=== PATIENT | male | born 1950 | race Caucasian/White ===

== ENCOUNTER 2019-07-19 15:30 | Inpatient (IN) ==
[2019-07-19] MEDS ORDERED: ACETAMINOPHEN 500 MG TABLET PO STA (15:57)
[2019-07-19] MEDS ORDERED: ONDANSETRON 4 MG/2 ML VIAL IV STA (16:36)
[2019-07-19] MEDS ORDERED: AZITHROMYCIN INJ 500 MG in SODIUM CHLORIDE 0.9% 250 ML IV STA (16:36)
[2019-07-19] MEDS ORDERED: cefTRIAXone 1,000 MG in SODIUM CHLORIDE 0.9% 100 ML IV STA (16:36)
[2019-07-19] MEDS ORDERED: methylPREDNISolone SOD SUC 125 MG/2 ML VIAL IV STA (16:36)
[2019-07-19 16:38] LABS: Basophils % 0.1 % (0.0-0.8); Immature Granulocytes % 1.4 %; Immature Granulocytes Absolute 0.12 #; Lymphocytes % 11.4 % (21.2-54.2); Mean Corpuscular HGB Conc 32.3 GM/DL (32-36); Mean Corpuscular Volume 94.4 FL (87-102); Mean Platelet Volume 9.7 FL (9.6-12.0); Monocytes % 5.1 % (1.7-12.7); Platelet Count 221 T/CUMM (130-400); Red Blood Count 1.77 MC/CUMM (3.8-5.5); Red Cell Distribution Width 13.9 % (9.3-17.3); White Blood Count 8.7 T/CUMM (4-12)
[2019-07-19 16:41] LABS: Hematocrit 16.7 VOL% (42.0-52.0); Hemoglobin 5.4 GM/DL (14.0-18.0)
[2019-07-19] MEDS ORDERED: METOCLOPRAMIDE 10 MG/2 ML VIAL IV STA (16:47)
[2019-07-19] MEDS ORDERED: ALBUTEROL 2.5 MG/3 ML NEB RESP TX SCH (17:00)
[2019-07-19 17:03] LABS: Alanine Aminotransferase 14 U/L (16-61); Albumin 2.6 G/DL (3.4-5.0); Alkaline Phosphatase 93 U/L (45-117); Aspartate Amino Transferase 20 U/L (0-37); Blood Urea Nitrogen 20 MG/DL (7-18); Estimated Glom Filtration Rate 20 ML/MIN; Glucose 106 MG/DL (74-106); Osmolality,Calculated 283.3 MOS/KG (273-304)
[2019-07-19 17:08] LABS: Amylase 35 U/L (25-115)
[2019-07-19 17:09] LABS: Troponin I 0.266 NG/ML (0.00-0.045)
[2019-07-19] MEDS ORDERED: SODIUM CHLORIDE 0.9% 1,000 ML IV STA (17:14)
[2019-07-19 17:15] LABS: Calcium < 5.0 MG/DL (8.5-10.1)
[2019-07-19] MEDS ORDERED: ACETAMINOPHEN 325 MG TABLET PO PRN (18:05)
[2019-07-19] MEDS ORDERED: ONDANSETRON 4 MG/2 ML VIAL IV PRN (18:05)
[2019-07-19] MEDS ORDERED: MAGNESIUM SULF RIDER 2 GM in PREMIX 1 EACH IV PRN (18:11)
[2019-07-19] MEDS ORDERED: MAGNESIUM SULF RIDER 4 GM in PREMIX 1 EACH IV PRN (18:11)
[2019-07-19] MEDS ORDERED: SODIUM CHLORIDE 0.9% 1,000 ML IV PRN (18:12)
[2019-07-19] MEDS: ALBUTEROL/IPRATROPIUM 3 ML NEB RESP TX SCH (19:00)
[2019-07-19 19:49] LABS: % Iron Saturation 11.5 % (18-50)
[2019-07-19] MEDS ORDERED: CALCIUM GLUCONATE 2,000 MG in SODIUM CHLORIDE 0.9% 100 ML IV ONE (20:00)
[2019-07-19] MEDS ORDERED: INFLUENZA VIRUS VACCINE 0.5 ML SYRINGE IM ONE (20:29)
[2019-07-19] MEDS ORDERED: CALCIUM (CITRATE) 200 MG TABLET PO SCH (21:00)
[2019-07-19] MEDS: POTASSIUM CHLORIDE 20 MEQ TABLET PO PRN (21:16)
[2019-07-20] MEDS: ALBUTEROL/IPRATROPIUM 3 ML NEB RESP TX SCH ×4 (00:03→19:31)
[2019-07-20] MEDS: POTASSIUM CHLORIDE 20 MEQ TABLET PO PRN (01:54)
[2019-07-20] MEDS ORDERED: FUROSEMIDE 40 MG/4 ML VIAL IV ONE (05:42)
[2019-07-20 06:20] LABS: Hemoglobin 10.5 GM/DL (14.0-18.0)
[2019-07-20] MEDS ORDERED: PANTOPRAZOLE 40 MG TABLET PO SCH (09:00)
[2019-07-20] MEDS ORDERED: CALCIUM (CITRATE) 200 MG TABLET PO SCH (09:00)
[2019-07-20] MEDS ORDERED: ERGOCALCIFEROL 50,000 UNIT CAPSULE PO SCH (09:00)
[2019-07-20 09:10] LABS: Calcium 5.6 MG/DL (8.5-10.1)
[2019-07-20] MEDS ORDERED: CALCIUM GLUCONATE 2,000 MG in SODIUM CHLORIDE 0.9% 100 ML IV ONE (10:00)
[2019-07-20] MEDS: CALCIUM (CARBONATE)/VITAMIN D 600 MG-400 UNIT TABLET PO SCH ×2 (10:04→20:47)
[2019-07-20] MEDS: IRON SUCROSE 200 MG in SODIUM CHLORIDE 0.9% 100 ML IV SCH (10:04)
[2019-07-20] MEDS ORDERED: POTASSIUM CHLORIDE IV ONE (10:30)
[2019-07-20] MEDS ORDERED: MAGNESIUM SULF IV ONE (10:30)
[2019-07-20] MEDS ORDERED: SODIUM CHLORIDE 0.9% IV ONE (10:30)
[2019-07-20] MEDS: LABETALOL 200 MG TABLET PO SCH ×2 (11:12→20:47)
[2019-07-20] MEDS: ATORVASTATIN 40 MG TABLET PO SCH (11:12)
[2019-07-20] MEDS: LOSARTAN 50 MG TABLET PO SCH (11:12)
[2019-07-20] MEDS: FINASTERIDE 5 MG TABLET PO SCH (11:12)
[2019-07-20] MEDS: amLODIPine 10 MG TABLET PO SCH (11:12)
[2019-07-20] MEDS: cefTRIAXone 2,000 MG in SYRINGE 1 EACH IV SCH (11:18)
[2019-07-20] MEDS: METHOCARBAMOL 500 MG TABLET PO SCH ×3 (13:38→20:47)
[2019-07-20] MEDS ORDERED: AZITHROMYCIN INJ 500 MG in SODIUM CHLORIDE 0.9% 250 ML IV SCH (18:30)
[2019-07-20] MEDS: MIRTAZAPINE 15 MG TABLET PO SCH (20:46)
[2019-07-20] MEDS: CETIRIZINE 10 MG TABLET PO SCH (20:47)
[2019-07-20] MEDS: TAMSULOSIN 0.4 MG CAPSULE PO SCH (20:47)
[2019-07-20] MEDS: PANTOPRAZOLE 40 MG TABLET PO SCH (20:47)
[2019-07-20 21:26] LABS: Apearance,Urine CLEAR (Clear); Bacteria,Urine Occasional /HPF (Few); Bilirubin,Urine Negative (Negative); Blood, Urine Moderate mg/dL (Negative); Glucose,Urine (UA) Negative (Negative); Hyaline Casts,Urine 7 /LPF (0-3); Ketones,Urine Negative (Negative); Mucus,Urine Occasional /LPF (Occasional); Nitrite,Urine Negative (Negative); Protein,Urine 100 MG/DL; RBC,Urine <1 /HPF (0-4); Squamous Epithelial Cell,Urine Occasional /HPF (0-10); Urine Color Yellow (Yellow); Urine Specific Gravity 1.016 (1.001-1.035); Urine Urobilinogen < 2.0 EU/DL (0.2-1.0); WBC,Urine 1 /HPF (0-6)
[2019-07-21] MEDS: ALBUTEROL/IPRATROPIUM 3 ML NEB RESP TX SCH ×5 (01:19→19:30)
[2019-07-21] MEDS ORDERED: POTASSIUM CHLORIDE RIDER 10 MEQ in PREMIX 1 EACH IV PRN (03:03)
[2019-07-21 03:50] LABS: Basophils % 0.2 % (0.0-0.8); Eosinophils % 0.1 % (0.00-10.9); Hematocrit 33.5 VOL% (42.0-52.0); Hemoglobin 11.1 GM/DL (14.0-18.0); Immature Granulocytes % 1.9 %; Immature Granulocytes Absolute 0.23 #; Lymphocytes # 1.1 10*3/uL (1.4-4.0); Mean Corpuscular HGB Conc 33.1 GM/DL (32-36); Mean Platelet Volume 9.7 FL (9.6-12.0); Monocytes % 6.8 % (1.7-12.7); NRBC # 0.03 10*3/uL; Platelet Count 225 T/CUMM (130-400); Red Blood Count 3.68 MC/CUMM (3.8-5.5); Red Cell Distribution Width 15.1 % (9.3-17.3); White Blood Count 12.3 T/CUMM (4-12)
[2019-07-21 03:52] LABS: Albumin 2.8 G/DL (3.4-5.0); Bilirubin,Total 0.4 MG/DL (0.2-1.0); Calcium 6.3 MG/DL (8.5-10.1); Osmolality,Calculated 293.8 MOS/KG (273-304); Total Protein 6.5 G/DL (6.4-8.3)
[2019-07-21] MEDS: POTASSIUM CHLORIDE RIDER 20 MEQ in PREMIX 1 EACH IV PRN ×3 (04:45→16:36)
[2019-07-21] MEDS ORDERED: ALBUTEROL/IPRATROPIUM 3 ML NEB RESP TX PRN (05:11)
[2019-07-21] MEDS ORDERED: LACTATED RINGERS 1,000 ML IV SCH (08:00)
[2019-07-21] MEDS: AZITHROMYCIN 250 MG TABLET PO SCH (09:59)
[2019-07-21] MEDS: LABETALOL 200 MG TABLET PO SCH ×2 (10:00→20:28)
[2019-07-21] MEDS: LOSARTAN 50 MG TABLET PO SCH (10:00)
[2019-07-21] MEDS: TAMSULOSIN 0.4 MG CAPSULE PO SCH ×2 (10:00→20:29)
[2019-07-21] MEDS: FINASTERIDE 5 MG TABLET PO SCH (10:01)
[2019-07-21] MEDS: PANTOPRAZOLE 40 MG TABLET PO SCH ×2 (10:02→20:28)
[2019-07-21] MEDS: amLODIPine 10 MG TABLET PO SCH (10:02)
[2019-07-21] MEDS: METHOCARBAMOL 500 MG TABLET PO SCH ×4 (10:04→20:28)
[2019-07-21] MEDS: cefTRIAXone 2,000 MG in SYRINGE 1 EACH IV SCH (10:05)
[2019-07-21] MEDS: ATORVASTATIN 40 MG TABLET PO SCH (10:17)
[2019-07-21] MEDS: CALCIUM (CARBONATE)/VITAMIN D 600 MG-400 UNIT TABLET PO SCH ×2 (10:17→20:28)
[2019-07-21] MEDS: IRON SUCROSE 200 MG in SODIUM CHLORIDE 0.9% 100 ML IV SCH (10:18)
[2019-07-21] MEDS ORDERED: CALCIUM GLUCONATE 1,000 MG in SODIUM CHLORIDE 0.9% 100 ML IV ONE (12:00)
[2019-07-21] MEDS ORDERED: FUROSEMIDE 40 MG/4 ML VIAL IV ONE ×2 (13:30→16:02)
[2019-07-21] MEDS: METOCLOPRAMIDE 10 MG/2 ML VIAL IV SCH ×2 (14:40→21:08)
[2019-07-21] MEDS: CEFEPIME 1,000 MG in SODIUM CHLORIDE 0.9% 100 ML IV SCH (14:44)
[2019-07-21] MEDS: MIRTAZAPINE 15 MG TABLET PO SCH (20:28)
[2019-07-21] MEDS: CETIRIZINE 10 MG TABLET PO SCH (20:29)
[2019-07-22] MEDS: ALBUTEROL/IPRATROPIUM 3 ML NEB RESP TX SCH ×4 (01:10→21:25)
[2019-07-22] MEDS: METOCLOPRAMIDE 10 MG/2 ML VIAL IV SCH ×4 (03:33→20:40)
[2019-07-22] MEDS: CEFEPIME 1,000 MG in SODIUM CHLORIDE 0.9% 100 ML IV SCH ×2 (04:55→20:43)
[2019-07-22] MEDS: METHOCARBAMOL 500 MG TABLET PO SCH ×4 (09:53→20:22)
[2019-07-22] MEDS: FINASTERIDE 5 MG TABLET PO SCH (09:53)
[2019-07-22] MEDS: TAMSULOSIN 0.4 MG CAPSULE PO SCH ×2 (09:54→20:22)
[2019-07-22] MEDS: AZITHROMYCIN 250 MG TABLET PO SCH (09:54)
[2019-07-22] MEDS: LABETALOL 200 MG TABLET PO SCH ×2 (09:54→20:22)
[2019-07-22] MEDS: LOSARTAN 50 MG TABLET PO SCH (09:54)
[2019-07-22] MEDS: PANTOPRAZOLE 40 MG TABLET PO SCH ×2 (09:54→20:22)
[2019-07-22] MEDS: amLODIPine 10 MG TABLET PO SCH (09:54)
[2019-07-22] MEDS: CALCIUM (CARBONATE)/VITAMIN D 600 MG-400 UNIT TABLET PO SCH ×2 (09:55→20:22)
[2019-07-22] MEDS: FUROSEMIDE 40 MG/4 ML VIAL IV SCH ×2 (09:57→15:15)
[2019-07-22] MEDS: IRON SUCROSE 200 MG in SODIUM CHLORIDE 0.9% 100 ML IV SCH (10:00)
[2019-07-22] MEDS: ATORVASTATIN 40 MG TABLET PO SCH (10:05)
[2019-07-22 16:06] LABS: Myeloperoxidase Antibody < 0.2 U
[2019-07-22] MEDS: MIRTAZAPINE 15 MG TABLET PO SCH (20:21)
[2019-07-22] MEDS: CETIRIZINE 10 MG TABLET PO SCH (20:22)
[2019-07-23] MEDS: ALBUTEROL/IPRATROPIUM 3 ML NEB RESP TX SCH ×4 (02:10→20:20)
[2019-07-23] MEDS: METOCLOPRAMIDE 10 MG/2 ML VIAL IV SCH ×2 (04:21→08:29)
[2019-07-23 05:36] LABS: Basophils % 0.4 % (0.0-0.8); Eosinophils # 0.1 10*3/uL (0.0-0.87); Eosinophils % 0.8 % (0.00-10.9); Hematocrit 33.3 VOL% (42.0-52.0); Hemoglobin 11.1 GM/DL (14.0-18.0); Immature Granulocytes % 2.9 %; Immature Granulocytes Absolute 0.28 #; Lymphocytes # 1.4 10*3/uL (1.4-4.0); Lymphocytes % 14.6 % (21.2-54.2); Mean Corpuscular HGB Conc 33.3 GM/DL (32-36); Mean Corpuscular Volume 89.8 FL (87-102); Mean Platelet Volume 10.4 FL (9.6-12.0); Monocytes % 9.3 % (1.7-12.7); Platelet Count 215 T/CUMM (130-400); Red Blood Count 3.71 MC/CUMM (3.8-5.5); Red Cell Distribution Width 14.7 % (9.3-17.3); White Blood Count 9.5 T/CUMM (4-12)
[2019-07-23 05:43] LABS: Calcium 7.1 MG/DL (8.5-10.1); Osmolality,Calculated 283.3 MOS/KG (273-304)
[2019-07-23] MEDS: ATORVASTATIN 40 MG TABLET PO SCH (08:21)
[2019-07-23] MEDS: amLODIPine 10 MG TABLET PO SCH (08:21)
[2019-07-23] MEDS: LOSARTAN 50 MG TABLET PO SCH (08:21)
[2019-07-23] MEDS: TAMSULOSIN 0.4 MG CAPSULE PO SCH ×2 (08:22→20:41)
[2019-07-23] MEDS: LABETALOL 200 MG TABLET PO SCH ×2 (08:22→20:41)
[2019-07-23] MEDS: AZITHROMYCIN 250 MG TABLET PO SCH (08:22)
[2019-07-23] MEDS: METHOCARBAMOL 500 MG TABLET PO SCH ×4 (08:22→20:41)
[2019-07-23] MEDS: CALCIUM (CARBONATE)/VITAMIN D 600 MG-400 UNIT TABLET PO SCH ×2 (08:22→20:41)
[2019-07-23] MEDS: PANTOPRAZOLE 40 MG TABLET PO SCH ×2 (08:23→20:41)
[2019-07-23] MEDS: FUROSEMIDE 40 MG/4 ML VIAL IV SCH ×2 (08:25→16:11)
[2019-07-23] MEDS: FINASTERIDE 5 MG TABLET PO SCH (08:29)
[2019-07-23] MEDS: CEFEPIME 1,000 MG in SODIUM CHLORIDE 0.9% 100 ML IV SCH ×2 (09:00→21:52)
[2019-07-23] MEDS ORDERED: ERGOCALCIFEROL 50,000 UNIT CAPSULE PO SCH (09:00)
[2019-07-23] MEDS ORDERED: MAGNESIUM SULF RIDER 4 GM in PREMIX 1 EACH IV STA (09:19)
[2019-07-23] MEDS ORDERED: POTASSIUM CHLORIDE 20 MEQ TABLET PO STA (09:21)
[2019-07-23] MEDS: IRON SUCROSE 200 MG in SODIUM CHLORIDE 0.9% 100 ML IV SCH (09:25)
[2019-07-23] MEDS: CETIRIZINE 10 MG TABLET PO SCH (20:41)
[2019-07-23] MEDS: MIRTAZAPINE 15 MG TABLET PO SCH (20:41)
[2019-07-24] MEDS: ALBUTEROL/IPRATROPIUM 3 ML NEB RESP TX SCH ×4 (00:25→19:47)
[2019-07-24 07:10] LABS: Osmolality,Calculated 275.8 MOS/KG (273-304)
[2019-07-24] MEDS ORDERED: MIDAZOLAM 2 MG/2 ML VIAL ONE (08:27)
[2019-07-24] MEDS ORDERED: ETOMIDATE 20 MG/10 ML VIAL IV ONE (10:00)
[2019-07-24] MEDS ORDERED: LIDOCAINE 2% 5 ML VIAL ONE (10:00)
[2019-07-24] MEDS ORDERED: PROPOFOL 200 MG/20 ML VIAL IV ONE (10:00)
[2019-07-24] MEDS: FUROSEMIDE 40 MG/4 ML VIAL IV SCH ×2 (10:22→17:09)
[2019-07-24] MEDS: CEFEPIME 1,000 MG in SODIUM CHLORIDE 0.9% 100 ML IV SCH ×2 (10:22→21:55)
[2019-07-24] MEDS: TAMSULOSIN 0.4 MG CAPSULE PO SCH ×2 (11:09→21:59)
[2019-07-24] MEDS: METHOCARBAMOL 500 MG TABLET PO SCH ×4 (11:09→21:58)
[2019-07-24] MEDS: LOSARTAN 50 MG TABLET PO SCH (11:09)
[2019-07-24] MEDS: CALCIUM (CARBONATE)/VITAMIN D 600 MG-400 UNIT TABLET PO SCH ×2 (11:09→21:59)
[2019-07-24] MEDS: LABETALOL 200 MG TABLET PO SCH (11:09)
[2019-07-24] MEDS: FINASTERIDE 5 MG TABLET PO SCH (11:09)
[2019-07-24] MEDS: IRON SUCROSE 200 MG in SODIUM CHLORIDE 0.9% 100 ML IV SCH (11:10)
[2019-07-24] MEDS: amLODIPine 10 MG TABLET PO SCH (11:10)
[2019-07-24] MEDS: PANTOPRAZOLE 40 MG TABLET PO SCH ×2 (11:10→21:58)
[2019-07-24] MEDS: ATORVASTATIN 40 MG TABLET PO SCH (11:10)
[2019-07-24] MEDS: POTASSIUM CHLORIDE RIDER 10 MEQ in PREMIX 1 EACH IV PRN ×3 (14:55→17:10)
[2019-07-24] MEDS: carvediloL 6.25 MG TABLET PO SCH (17:09)
[2019-07-24] MEDS: MIRTAZAPINE 15 MG TABLET PO SCH (21:58)
[2019-07-24] MEDS: CETIRIZINE 10 MG TABLET PO SCH (21:59)
[2019-07-25] MEDS: ALBUTEROL/IPRATROPIUM 3 ML NEB RESP TX SCH ×2 (00:55→07:20)
[2019-07-25 05:09] LABS: Basophils # 0.1 10*3/uL (0.0-0.2); Basophils % 0.5 % (0.0-0.8); Eosinophils # 0.3 10*3/uL (0.0-0.87); Eosinophils % 2.4 % (0.00-10.9); Hematocrit 31.6 VOL% (42.0-52.0); Hemoglobin 10.7 GM/DL (14.0-18.0); Immature Granulocytes % 1.8 %; Immature Granulocytes Absolute 0.19 #; Lymphocytes # 1.5 10*3/uL (1.4-4.0); Lymphocytes % 14.5 % (21.2-54.2); Mean Corpuscular HGB Conc 33.9 GM/DL (32-36); Mean Corpuscular Volume 88.5 FL (87-102); Monocytes % 13.5 % (1.7-12.7); Neutrophils % 67.3 % (38.7-73.9); Platelet Count 240 T/CUMM (130-400); Red Blood Count 3.57 MC/CUMM (3.8-5.5); Red Cell Distribution Width 14.2 % (9.3-17.3); White Blood Count 10.5 T/CUMM (4-12)
[2019-07-25 05:42] LABS: Calcium 8.2 MG/DL (8.5-10.1); Osmolality,Calculated 281.4 MOS/KG (273-304)
[2019-07-25] MEDS ORDERED: FUROSEMIDE 40 MG TABLET PO SCH (08:00)
[2019-07-25] MEDS ORDERED: LOSARTAN 25 MG TABLET PO SCH (09:00)
[2019-07-25] MEDS: amLODIPine 10 MG TABLET PO SCH (09:10)
[2019-07-25] MEDS: CALCIUM (CARBONATE)/VITAMIN D 600 MG-400 UNIT TABLET PO SCH (09:11)
[2019-07-25] MEDS: FINASTERIDE 5 MG TABLET PO SCH (09:11)
[2019-07-25] MEDS: carvediloL 6.25 MG TABLET PO SCH (09:11)
[2019-07-25] MEDS: CEFEPIME 1,000 MG in SODIUM CHLORIDE 0.9% 100 ML IV SCH (09:11)
[2019-07-25] MEDS: ATORVASTATIN 40 MG TABLET PO SCH (09:11)
[2019-07-25] MEDS: PANTOPRAZOLE 40 MG TABLET PO SCH (09:11)
[2019-07-25] MEDS: TAMSULOSIN 0.4 MG CAPSULE PO SCH (09:11)
[2019-07-25] MEDS ORDERED: LEVOFLOXACIN 750 MG TABLET PO SCH (10:30)
[2019-07-25] MEDS ORDERED: HEPARIN LOCK FLUSH 500 UNIT/5 ML SYRINGE IV ONE (11:00)
[2019-07-25] MEDS: METHOCARBAMOL 500 MG TABLET PO SCH (11:06)
[2019-07-25 11:11] VITALS: BP 154/91
[2019-07-25] MEDS ORDERED: CALCIUM (CARBONATE)/VITAMIN D 600 MG-400 UNIT TABLET PO SCH (21:00)
== END 2019-07-25 11:32 | disposition home or self-care (01) | DRG 193 ==
LOC: N.ED 15:30 → SUATTDRO 18:05 → N.EDINP 18:05 → N.2E 19:28
PROVIDERS: ADMIT Internal Medicine; ATTEND Internal Medicine Nephrology

== ENCOUNTER 2021-09-13 16:21 | Inpatient (IN) ==
[2021-09-13] MEDS ORDERED: SODIUM CHLORIDE 0.9% 1,000 ML IV STA (17:24)
[2021-09-13] MEDS ORDERED: DIGOXIN 0.5 MG/2 ML AMP IV STA (17:26)
[2021-09-13 18:02] LABS: Basophils % 0.2 % (0.0-0.8); Eosinophils # 0.1 10*3/uL (0.0-0.87); Eosinophils % 0.9 % (0.00-10.9); Hemoglobin 12.9 GM/DL (14.0-18.0); Immature Granulocytes % 0.5 %; Immature Granulocytes Absolute 0.04 #; Lymphocytes # 0.7 10*3/uL (1.4-4.0); Lymphocytes % 8.6 % (21.2-54.2); Mean Corpuscular HGB Conc 33.1 GM/DL (32-36); Mean Corpuscular Volume 94.9 FL (87-102); Mean Platelet Volume 9.8 FL (9.6-12.0); NRBC # 0.02 10*3/uL; Neutrophils % 80.8 % (38.7-73.9); Platelet Count 234 T/CUMM (130-400); Red Blood Count 4.11 MC/CUMM (3.8-5.5); Red Cell Distribution Width 13.8 % (9.3-17.3); White Blood Count 8.5 T/CUMM (4-12)
[2021-09-13 18:26] LABS: Albumin 3.4 G/DL (3.4-5.0); Bilirubin,Total 0.7 MG/DL (0.20-1.00); Calcium 8.5 MG/DL (8.5-10.1); Osmolality,Calculated 289.4 MOS/KG (273-304); Potassium 3.9 MMOL/L (3.5-5.1); Total Protein 7.3 G/DL (6.4-8.2)
[2021-09-13] MEDS ORDERED: PIPERACILLIN/TAZOBACTAM 3,375 MG in SODIUM CHLORIDE 0.9% 100 ML IV STA (18:50)
[2021-09-13] MEDS ORDERED: DILTIAZEM 50 MG/10 ML VIAL IV STA (19:19)
[2021-09-13] MEDS ORDERED: ONDANSETRON 4 MG/2 ML VIAL IV PRN (19:58)
[2021-09-13] MEDS ORDERED: SODIUM CHLORIDE 0.9% 1,000 ML IV SCH (20:00)
[2021-09-13] MEDS: DILTIAZEM INJ 100 MG in SODIUM CHLORIDE 0.9% 100 ML IV SCH (20:31)
[2021-09-13] MEDS ORDERED: APIXABAN 2.5 MG TABLET PO SCH (21:00)
[2021-09-13] MEDS: TAMSULOSIN 0.4 MG CAPSULE PO SCH (22:45)
[2021-09-13] MEDS: MIRTAZAPINE 30 MG TABLET PO SCH (23:10)
[2021-09-13 23:44] LABS: INR 1.1; PT Patient Result 12.6 SECS (10.5-12.0); Partial Thromboplastin Time 30.7 SECS (23.8-32.1)
[2021-09-14] MEDS: ALBUTEROL/IPRATROPIUM 3 ML NEB RESP TX SCH ×4 (03:33→19:45)
[2021-09-14] MEDS: methylPREDNISolone SOD SUC 40 MG/1 ML VIAL IV SCH ×3 (06:01→21:26)
[2021-09-14 06:20] LABS: Basophils % 0.3 % (0.0-0.8); Eosinophils # 0.3 10*3/uL (0.0-0.87); Hematocrit 35.2 VOL% (42.0-52.0); Hemoglobin 11.5 GM/DL (14.0-18.0); Immature Granulocytes % 0.6 %; Immature Granulocytes Absolute 0.05 #; Lymphocytes # 0.8 10*3/uL (1.4-4.0); Lymphocytes % 9.2 % (21.2-54.2); Mean Corpuscular HGB Conc 32.7 GM/DL (32-36); Mean Corpuscular Volume 96.7 FL (87-102); Mean Platelet Volume 9.6 FL (9.6-12.0); Monocytes % 8.9 % (1.7-12.7); Platelet Count 195 T/CUMM (130-400); Red Blood Count 3.64 MC/CUMM (3.8-5.5); Red Cell Distribution Width 13.4 % (9.3-17.3); White Blood Count 9.1 T/CUMM (4-12)
[2021-09-14 06:38] LABS: Albumin 2.7 G/DL (3.4-5.0); Bilirubin,Total 0.5 MG/DL (0.20-1.00); Calcium 8.3 MG/DL (8.5-10.1); Osmolality,Calculated 284.5 MOS/KG (273-304); Potassium 4.2 MMOL/L (3.5-5.1)
[2021-09-14] MEDS: BUDESONIDE 0.5 MG/2 ML NEB RESP TX SCH ×3 (06:55→19:45)
[2021-09-14] MEDS: DILTIAZEM INJ 100 MG in SODIUM CHLORIDE 0.9% 100 ML IV SCH ×2 (07:30→19:22)
[2021-09-14] MEDS ORDERED: MAGNESIUM SULF RIDER 2 GM/50 ML PREMIX IV ONE (08:46)
[2021-09-14] MEDS: PANTOPRAZOLE 40 MG TABLET PO SCH (08:55)
[2021-09-14] MEDS: TAMSULOSIN 0.4 MG CAPSULE PO SCH ×2 (08:55→20:06)
[2021-09-14] MEDS: ATORVASTATIN 40 MG TABLET PO SCH (08:55)
[2021-09-14] MEDS: FINASTERIDE 5 MG TABLET PO SCH (08:55)
[2021-09-14] MEDS: METOPROLOL TARTRATE 50 MG TABLET PO SCH ×2 (08:55→20:06)
[2021-09-14] MEDS: PIPERACILLIN/TAZOBACTAM 3,375 MG in SODIUM CHLORIDE 0.9% 100 ML IV SCH ×2 (08:55→19:44)
[2021-09-14] MEDS ORDERED: CLOPIDOGREL 75 MG TABLET PO SCH (09:00)
[2021-09-14] MEDS ORDERED: DILTIAZEM 30 MG TABLET PO SCH (09:00)
[2021-09-14] MEDS: MIRTAZAPINE 30 MG TABLET PO SCH (20:06)
[2021-09-14] MEDS: CETIRIZINE 10 MG TABLET PO SCH (20:06)
[2021-09-15] MEDS: ALBUTEROL/IPRATROPIUM 3 ML NEB RESP TX SCH ×4 (00:21→19:55)
[2021-09-15 04:53] LABS: Basophils % 0.1 % (0.0-0.8); Hematocrit 38.1 VOL% (42.0-52.0); Hemoglobin 12.5 GM/DL (14.0-18.0); Immature Granulocytes % 0.5 %; Immature Granulocytes Absolute 0.04 #; Lymphocytes # 0.4 10*3/uL (1.4-4.0); Lymphocytes % 5.2 % (21.2-54.2); Mean Corpuscular HGB Conc 32.8 GM/DL (32-36); Mean Corpuscular Volume 95.5 FL (87-102); Mean Platelet Volume 9.8 FL (9.6-12.0); Monocytes % 1.9 % (1.7-12.7); NRBC # 0.02 10*3/uL; Neutrophils % 92.3 % (38.7-73.9); Platelet Count 195 T/CUMM (130-400); Red Blood Count 3.99 MC/CUMM (3.8-5.5); Red Cell Distribution Width 13.5 % (9.3-17.3); White Blood Count 7.5 T/CUMM (4-12)
[2021-09-15 05:19] LABS: Albumin 2.9 G/DL (3.4-5.0); Bilirubin,Total 0.4 MG/DL (0.20-1.00); Calcium 8.9 MG/DL (8.5-10.1); Osmolality,Calculated 283.8 MOS/KG (273-304); Potassium 4.8 MMOL/L (3.5-5.1); Total Protein 6.4 G/DL (6.4-8.2)
[2021-09-15 05:23] LABS: Lymphocytes 5 % (20-55); Segmented Neutrophils 94 % (50-85); Total Cells Counted 100
[2021-09-15 05:24] LABS: Microcytosis 1+; Tear Drop Cells Slight
[2021-09-15 05:25] LABS: Platelet Estimate Adequate
[2021-09-15] MEDS: methylPREDNISolone SOD SUC 40 MG/1 ML VIAL IV SCH ×2 (05:40→17:47)
[2021-09-15] MEDS: BUDESONIDE 0.5 MG/2 ML NEB RESP TX SCH ×2 (07:25→20:05)
[2021-09-15] MEDS: FINASTERIDE 5 MG TABLET PO SCH (10:39)
[2021-09-15] MEDS: ATORVASTATIN 40 MG TABLET PO SCH (10:39)
[2021-09-15] MEDS: METOPROLOL TARTRATE 50 MG TABLET PO SCH ×2 (10:39→20:01)
[2021-09-15] MEDS: TAMSULOSIN 0.4 MG CAPSULE PO SCH ×2 (10:40→20:01)
[2021-09-15] MEDS: PANTOPRAZOLE 40 MG TABLET PO SCH (10:40)
[2021-09-15] MEDS: PIPERACILLIN/TAZOBACTAM 3,375 MG in SODIUM CHLORIDE 0.9% 100 ML IV SCH ×2 (10:40→22:03)
[2021-09-15] MEDS: DILTIAZEM INJ 100 MG in SODIUM CHLORIDE 0.9% 100 ML IV SCH (19:40)
[2021-09-15] MEDS: CETIRIZINE 10 MG TABLET PO SCH (20:01)
[2021-09-15] MEDS: MIRTAZAPINE 30 MG TABLET PO SCH (20:01)
[2021-09-16] MEDS: methylPREDNISolone SOD SUC 40 MG/1 ML VIAL IV SCH ×3 (01:45→17:04)
[2021-09-16 04:37] LABS: Basophils % 0.1 % (0.0-0.8); Hematocrit 37.6 VOL% (42.0-52.0); Hemoglobin 12.1 GM/DL (14.0-18.0); Immature Granulocytes % 0.8 %; Immature Granulocytes Absolute 0.09 #; Lymphocytes # 0.5 10*3/uL (1.4-4.0); Lymphocytes % 4.5 % (21.2-54.2); Mean Corpuscular HGB Conc 32.2 GM/DL (32-36); Mean Corpuscular Volume 95.2 FL (87-102); Mean Platelet Volume 9.6 FL (9.6-12.0); Monocytes % 5.8 % (1.7-12.7); NRBC # 0.04 10*3/uL; Neutrophils % 88.8 % (38.7-73.9); Platelet Count 192 T/CUMM (130-400); Red Blood Count 3.95 MC/CUMM (3.8-5.5); Red Cell Distribution Width 13.8 % (9.3-17.3)
[2021-09-16 04:58] LABS: Albumin 2.8 G/DL (3.4-5.0); Bilirubin,Total 0.8 MG/DL (0.20-1.00); Calcium 8.8 MG/DL (8.5-10.1); Osmolality,Calculated 286.7 MOS/KG (273-304); Potassium 4.8 MMOL/L (3.5-5.1); Total Protein 6.2 G/DL (6.4-8.2)
[2021-09-16 05:00] LABS: Lymphocytes 2 % (20-55); Platelet Estimate Adequate; Segmented Neutrophils 94 % (50-85); Total Cells Counted 100
[2021-09-16] MEDS: BUDESONIDE 0.5 MG/2 ML NEB RESP TX SCH ×2 (06:55→20:18)
[2021-09-16] MEDS: ALBUTEROL/IPRATROPIUM 3 ML NEB RESP TX SCH ×4 (06:55→20:28)
[2021-09-16] MEDS: METOPROLOL TARTRATE 50 MG TABLET PO SCH ×2 (08:01→20:12)
[2021-09-16] MEDS ORDERED: KETAMINE 500 MG/10 ML VIAL ONE (08:27)
[2021-09-16] MEDS ORDERED: BUPIVACAINE MPF 0.25% 30 ML VIAL ONE (08:59)
[2021-09-16] MEDS ORDERED: LIDOCAINE 1%/EPI INJ 20 ML VIAL ONE (08:59)
[2021-09-16] MEDS ORDERED: BUPIVACAINE 0.5% 50 ML VIAL ONE (09:02)
[2021-09-16] MEDS ORDERED: LIDOCAINE 1% 5 ML VIAL ONE (09:07)
[2021-09-16] MEDS ORDERED: propofoL 200 MG/20 ML VIAL IV ONE (09:10)
[2021-09-16] MEDS ORDERED: LIDOCAINE 2% 5 ML VIAL ONE (09:10)
[2021-09-16] MEDS ORDERED: MEPERIDINE 25 MG/1 ML VIAL IV PRN (09:57)
[2021-09-16] MEDS ORDERED: ONDANSETRON 4 MG/2 ML VIAL IV PRN (09:57)
[2021-09-16] MEDS: TAMSULOSIN 0.4 MG CAPSULE PO SCH ×2 (11:09→20:12)
[2021-09-16] MEDS: PANTOPRAZOLE 40 MG TABLET PO SCH (11:09)
[2021-09-16] MEDS: FINASTERIDE 5 MG TABLET PO SCH (11:09)
[2021-09-16] MEDS: ATORVASTATIN 40 MG TABLET PO SCH (11:09)
[2021-09-16] MEDS: PIPERACILLIN/TAZOBACTAM 3,375 MG in SODIUM CHLORIDE 0.9% 100 ML IV SCH ×2 (12:24→22:49)
[2021-09-16] MEDS: DILTIAZEM INJ 100 MG in SODIUM CHLORIDE 0.9% 100 ML IV SCH (19:31)
[2021-09-16] MEDS: CETIRIZINE 10 MG TABLET PO SCH (20:12)
[2021-09-16] MEDS: MIRTAZAPINE 30 MG TABLET PO SCH (20:12)
[2021-09-17] MEDS: ALBUTEROL/IPRATROPIUM 3 ML NEB RESP TX SCH ×3 (00:50→13:23)
[2021-09-17] MEDS: methylPREDNISolone SOD SUC 40 MG/1 ML VIAL IV SCH ×2 (01:40→10:22)
[2021-09-17 05:05] LABS: Basophils % 0.1 % (0.0-0.8); Hematocrit 39.5 VOL% (42.0-52.0); Hemoglobin 12.6 GM/DL (14.0-18.0); Immature Granulocytes % 0.9 %; Immature Granulocytes Absolute 0.11 #; Lymphocytes # 0.5 10*3/uL (1.4-4.0); Lymphocytes % 3.6 % (21.2-54.2); Mean Corpuscular HGB Conc 31.9 GM/DL (32-36); Mean Corpuscular Volume 97.8 FL (87-102); Mean Platelet Volume 10.2 FL (9.6-12.0); NRBC # 0.08 10*3/uL; Neutrophils % 93.4 % (38.7-73.9); Platelet Count 167 T/CUMM (130-400); Red Blood Count 4.04 MC/CUMM (3.8-5.5); Red Cell Distribution Width 13.8 % (9.3-17.3); White Blood Count 12.8 T/CUMM (4-12)
[2021-09-17 05:28] LABS: Hypochromia Slight; Lymphocytes 4 % (20-55); Microcytosis Slight; Platelet Estimate Adequate; Segmented Neutrophils 94 % (50-85); Total Cells Counted 100
[2021-09-17 05:29] LABS: Calcium 8.9 MG/DL (8.5-10.1); Osmolality,Calculated 295.4 MOS/KG (273-304); Potassium 5.8 MMOL/L (3.5-5.1)
[2021-09-17] MEDS ORDERED: DILTIAZEM CD 120 MG CAPSULE PO SCH (09:00)
[2021-09-17] MEDS: ATORVASTATIN 40 MG TABLET PO SCH (10:22)
[2021-09-17] MEDS: TAMSULOSIN 0.4 MG CAPSULE PO SCH (10:22)
[2021-09-17] MEDS: METOPROLOL TARTRATE 50 MG TABLET PO SCH ×2 (10:23→13:17)
[2021-09-17] MEDS: PANTOPRAZOLE 40 MG TABLET PO SCH (10:23)
[2021-09-17] MEDS: FINASTERIDE 5 MG TABLET PO SCH (10:23)
[2021-09-17] MEDS: PIPERACILLIN/TAZOBACTAM 3,375 MG in SODIUM CHLORIDE 0.9% 100 ML IV SCH (10:24)
[2021-09-17 16:48] VITALS: BP 119/76
== END 2021-09-17 18:18 | disposition home or self-care (01) | DRG 180 ==
LOC: N.ED 16:21 → SUATTDRO 19:19 → N.EDINP 19:19 → N.CC 22:09 → N.TELES 09-17 02:07
PROVIDERS: ADMIT Internal Medicine; ATTEND Hospitalist